=== PATIENT | female | born 1950 | race Caucasian/White ===

== ENCOUNTER 2019-08-15 09:58 | Emergency (ER) | payer MEDICARE, OTHER ==
[~2019-08-15] VITALS: Ht 160 cm; Wt 97.5 kg
--- NOTE | 2019-08-15 10:05 | NUR ---
[facility] "Slip/fell in shower now have pain on L shoulder/back and head",patient also c/o L rib pain. to ER bed 11, hooked to bp monitor and pox, changed to hosp gown, warm blanket provided, patient aao x 4, breathing even and unlabored, Dr Mak at bedside for eval.
--- NOTE | 2019-08-15 10:11 | NUR ---
DAUGHTER CHEN [phone]
[2019-08-15] MEDS ORDERED: HYDROCODONE/APAP 5/325MG 1 EACH TABLET ONE (10:14)
[2019-08-15] MEDS ORDERED: IBUPROFEN 400 MG TABLET ONE (10:14)
--- NOTE | 2019-08-15 10:23 | NUR ---
[facility] BUS AT BEDSIDE FOR XRAY.
[2019-08-15] MEDS ORDERED: IBUPROFEN 400 MG TABLET PO ONE (10:30)
[2019-08-15] MEDS ORDERED: HYDROCODONE/APAP 5/325MG 1 EACH TABLET PO ONE (10:30)
--- NOTE | 2019-08-15 10:43 | NUR ---
PT IS WHEELED TO CT SCAN VIA [facility].
--- NOTE | 2019-08-15 12:20 | NUR ---
CALLED [facility] [phone]
--- NOTE | 2019-08-15 13:11 | NUR ---
CALL[facility]: NO RESPONSE FROM DR VAZQUEZ. [facility] WILL KEEP TRYING TO REACH HIM HE IS NOT ANSWERING HIS PHONE AT THIS TIME.
--- NOTE | 2019-08-15 13:14 | NUR ---
INFORMED OF BP.
[2019-08-15] MEDS ORDERED: CLONIDINE HCL 0.1 MG TABLET ONE (13:37)
[2019-08-15] MEDS ORDERED: CLONIDINE HCL 0.1 MG TABLET PO ONE (14:00)
--- NOTE | 2019-08-15 14:16 | NUR ---
Patient discharged to home in stable condition. Assisted to waiting room where daughter is waiting. Written and verbal after care instructions given. Patient verbalizes understanding of instruction.
[2019-08-15 14:17] VITALS: BP 169/99
== END 2019-08-15 14:17 | disposition home or self-care (01) ==
LOC: ER 10:00
DX: S42.192A Fracture of other part of scapula, left shoulder, initial encounter for closed fracture (principal); I10 Essential (primary) hypertension; F32.9 Major depressive disorder, single episode, unspecified; M19.90 Unspecified osteoarthritis, unspecified site; Z88.8 Allergy status to other drugs, medicaments and biological substances; W01.0XXA Fall on same level from slipping, tripping and stumbling without subsequent striking against object, initial encounter; Y93.E1 Activity, personal bathing and showering; Y92.89 Other specified places as the place of occurrence of the external cause; Y99.8 Other external cause status
CPT/HCPCS: 70450-TC; 71100-TC; 71250-TC; 73030-TC